=== PATIENT | female | born 1965 | race Caucasian/White ===

== ENCOUNTER 2017-01-13 22:54 | Emergency (ER) | payer SELFPAY ==
[~2017-01-13] VITALS: Ht 154.9 cm; Wt 100.0 kg
[~2017-01-13 22:54] MED LIST: IOHEXOL-350 100 ML BOTTLE ONE; METF1000 PO; SODIUM CHLORIDE 0.9% 10ML VIAL ONE; TRAM50TA3 PO
[2017-01-13] MEDS ORDERED: ASPIRIN 81MG TABLET PO STA (23:31)
[2017-01-13] MEDS ORDERED: NITROGLYCERIN 0.4MG TABLET SL SL PRN (23:45)
[2017-01-13 23:51] LABS: BASOPHILS % 0.5 % (0.0-2.0); EOSINOPHILS % 1.3 % (0.0-5.0); HEMATOCRIT. 34.9 % (36.0-48.0); HEMOGLOBIN. 11.3 g/dL (12.0-16.0); LYMPHOCYTES % 9.3 % (20.0-50.0); MEAN CORPUSCULAR HEMOGLOBIN 29.6 pg (28.0-32.0); MEAN CORPUSCULAR HGB CONC 32.5 g/dL (31.0-37.0); MEAN PLATELET VOLUME 9.1 fl (7.4-10.4); MONOCYTES % 8.7 % (2.0-8.0); NEUTROPHILS % 80.2 % (40.0-76.0); PLATELET 183 x1000/uL (130-400); RED BLOOD CELL COUNT 3.84 mill/uL (4.2-5.4); RED CELL DISTRIBUTION WIDTH 13.3 % (11.6-14.6); WHITE BLOOD COUNT 7.6 x1000/uL (4.5-11.0)
[2017-01-14 00:03] LABS: D-DIMER 1.83 mg/L FEU (<0.50); PARTIAL THROMBOPLASTIN TIME 25.2 sec (24.0-34.0)
[2017-01-14 00:11] LABS: ALANINE AMINOTRANSFERASE 26 IU/L (13-61); ALBUMIN 3.3 g/dL (3.4-5.0); ANION GAP 11; CALCIUM 8.7 mg/dL (8.5-10.1); CARBON DIOXIDE 31 mEq/L (21-32); CHLORIDE 105 mEq/L (98-107); INDEX HEMOLYSI 1 (1-3); INDEX ICTERIC 1 (1-4); INDEX LIPEMIC 1 (1-3); LIPASE 111 IU/L (73-393); NT PRO B-TYPE NATRIURETIC PEP 738 pg/mL (5-125); TROPONIN I 0.07 ng/mL (0.00-0.04); UREA NITROGEN BLOOD 23 mg/dL (7-21); eGFR > 60 mL/min (>60)
[2017-01-14 01:34] VITALS: BP 127/72
== END 2017-01-14 04:24 | disposition left against medical advice (07) ==
LOC: ER 22:54 → SUPCPDRO 01-14 11:28
DX: R07.89 Other chest pain (principal); I10 Essential (primary) hypertension; E11.9 Type 2 diabetes mellitus without complications; R00.1 Bradycardia, unspecified; E78.00 Pure hypercholesterolemia, unspecified
CPT/HCPCS: 36415; 71010; 71275; 80053; 83690; 83880; 84484; 85025; 85379; 85610; 85730; 93005; 99285; A4216; Q9967; Z7610

== ENCOUNTER 2017-09-24 05:58 | Emergency (ER) | payer SELFPAY ==
[~2017-09-24] VITALS: Ht 152.4 cm; Wt 127.0 kg
[~2017-09-24 05:58] MED LIST changes: -IOHEXOL-350 100 ML BOTTLE ONE; -SODIUM CHLORIDE 0.9% 10ML VIAL ONE
[2017-09-24] MEDS ORDERED: ONDANSETRON HCL 4MG/2ML VIAL IV ONE (07:00)
[2017-09-24] MEDS ORDERED: MORPHINE SULFATE 4 MG/ML CPJ (NOT FOR IM USE) IV ONE (07:00)
[2017-09-24] MEDS ORDERED: DIATR MEGLU/DIATRIZOATE SOLN 30ML ONE (07:13)
[2017-09-24 07:23] LABS: BASOPHILS % 0.5 % (0.0-2.0); EOSINOPHILS % 0.9 % (0.0-5.0); HEMATOCRIT. 35.3 % (36.0-48.0); HEMOGLOBIN. 11.1 g/dL (12.0-16.0); LYMPHOCYTES % 7.1 % (20.0-50.0); MEAN CORPUSCULAR HEMOGLOBIN 28.6 pg (28.0-32.0); MEAN CORPUSCULAR VOLUME 91.4 fL (81.0-99.0); MEAN PLATELET VOLUME 9.4 fl (7.4-10.4); MONOCYTES % 6.5 % (2.0-8.0); PLATELET 174 x1000/uL (130-400); RED BLOOD CELL COUNT 3.86 mill/uL (4.2-5.4); RED CELL DISTRIBUTION WIDTH 15.1 % (11.6-14.6)
[2017-09-24 07:30] LABS: PROTHROMBIN TIME 10.3 sec (9.4-11.6)
[2017-09-24 07:53] LABS: CARBON DIOXIDE 32 mEq/L (21-32); CHLORIDE 106 mEq/L (98-107); TROPONIN I 0.08 ng/mL (0.00-0.04)
[2017-09-24] MEDS ORDERED: MORPHINE SULFATE 4 MG/ML CPJ (NOT FOR IM USE) IV NR (08:30)
[2017-09-24] MEDS ORDERED: MORPHINE SULFATE 10 MG/ML CPJ IV NR (09:07)
[2017-09-24 09:20] LABS: CLARITY URINE CLEAR (CLEAR); COLOR URINE YELLOW (YELLOW); KETONES URINE NEGATIVE (NEGATIVE); LEUKOCYTE ESTERASE URINE NEGATIVE (NEGATIVE); NITRITE URINE NEGATIVE (NEGATIVE); OCCULT BLOOD URINE 1+ (NEGATIVE); PROTEIN URINE NEGATIVE (NEGATIVE); SPECIFIC GRAVITY URINE 1.009 (1.005-1.030); UROBILINOGEN URINE 0.2 E.U./dL (0.2-1.0)
[2017-09-24] MEDS ORDERED: IOHEXOL-300 100 ML BOTTLE ONE (10:02)
[2017-09-24 11:59] VITALS: BP 128/71
== END 2017-09-24 12:16 | disposition home or self-care (01) ==
LOC: ER 05:58
DX: R10.12 Left upper quadrant pain (principal); E11.9 Type 2 diabetes mellitus without complications; I10 Essential (primary) hypertension; E78.00 Pure hypercholesterolemia, unspecified
CPT/HCPCS: 36415; 71010; 74177; 80053; 81001; 83690; 84484; 85025; 85610; 93005; 96374; 96375; 99285; J2270; J2405; Q9967; Q9963

== ENCOUNTER → 2020-05-12 | Emergency (ER) | payer MEDICAID ==
[~2020-05-12] VITALS: Ht 149.9 cm; Wt 137.0 kg
[~2020-05-12] MED LIST changes: +CLINDAMYCIN 600MG PREMIX 50 ML IV SCH; +EPINEPHRINE 0.1MG/ML (1:10,000) 10ML SYR ONE; +HEPARIN 25,000 UNITS PREMIX 500 ML IV PRN; +HEPARIN 5000 UNITS/ML VIAL IV SCH; +IOHEXOL-350 100 ML BOTTLE ONE; +MORPHINE SULFATE 4 MG/ML CPJ (NOT FOR IM USE) IV ONE; +PIPERACILLIN/TAZOBACTAM 3.375GM/50ML PREMIX IV NR; +SODIUM CHLORIDE 0.9% 1,000 ML IV SCH; +VANCOMYCIN 1 G PREMIX 200 ML IV NR
[2020-05-12 13:54] LABS: BASOPHILS % 0.2 % (0.0-2.0); EOSINOPHILS % 0.3 % (0.0-5.0); HEMATOCRIT. 38.1 % (36.0-48.0); HEMOGLOBIN. 11.5 g/dL (12.0-16.0); MEAN CORPUSCULAR HEMOGLOBIN 30.9 pg (28.0-32.0); MEAN CORPUSCULAR VOLUME 102.6 fL (81.0-99.0); MEAN PLATELET VOLUME 10.2 fl (7.4-10.4); MONOCYTES % 4.1 % (2.0-8.0); NEUTROPHILS % 85.4 % (40.0-76.0); PLATELET 207 x1000/uL (130-400); RED BLOOD CELL COUNT 3.71 mill/uL (4.2-5.4); RED CELL DISTRIBUTION WIDTH 15.7 % (11.6-14.6)
[2020-05-12 13:57] LABS: CHLORIDE 108 mEq/L (98-107)
[2020-05-12 16:15] VITALS: BP 185/112
[2020-05-12 19:32] LABS: CREATINE KINASE 109 IU/L (26-192)
== END | disposition expired ==
LOC: ER 12:42 → EDBEDREQTM 16:47 → EDBEDREQSVC 16:47 → EDBEDREQ 16:47 → CANBEDREQ 19:32
DX: A41.9 Sepsis, unspecified organism (principal); R65.20 Severe sepsis without septic shock; I46.9 Cardiac arrest, cause unspecified; N17.9 Acute kidney failure, unspecified; I96 Gangrene, not elsewhere classified; I11.0 Hypertensive heart disease with heart failure; I50.9 Heart failure, unspecified; E11.9 Type 2 diabetes mellitus without complications; E78.00 Pure hypercholesterolemia, unspecified; J81.1 Chronic pulmonary edema; K80.80 Other cholelithiasis without obstruction
CPT/HCPCS: 31500; 36415; 71045; 74176; 80053; 82550; 82962; 83605; 83690; 83880; 84484; 85025; 93005; 94660; 96374; 96375; 99285; J2270; J2543; J3490; Q9967